=== PATIENT | female | born 1955 | race Caucasian/White ===

== ENCOUNTER → 2017-09-06 | Outpatient (CLI) | payer OTHER ==
[~2017-09-06] MED LIST: DORZ1SOL6 OPB; FEXO1TAB49 PO
[2017-09-06 12:08] LABS: HEMATOCRIT 38.2 % (37-47); MEAN CELL VOLUME 87.2 fL (80-100); MEAN CORPUSCULAR HEMOGLOBIN 29.7 pg (25-34); MEAN PLATELET VOLUME 9.1 fL (7.4-10.4); PLATELET COUNT 296 K/uL (130-400); RED CELL DISTRIBUTION WIDTH CV 13.4 % (11.5-14.5); WHITE BLOOD COUNT 5.95 K/uL (4.8-10.8)
[2017-09-06 12:22] LABS: ALBUMIN 3.8 gm/dl (3.4-5.0); ALT/SGPT 22 U/L (12-78); AST/SGOT 13 U/L (15-37); BLOOD UREA NITROGEN 14 mg/dl (7-18); CALCIUM 8.8 mg/dl (8.5-10.1); CARBON DIOXIDE 30 mmol/L (21-32); CHOLESTEROL 362 mg/dl (0-200); CREATININE 0.78 mg/dl (0.60-1.20); GLUCOSE 112 mg/dl (70-99); SODIUM 137 mmol/L (136-145)
[2017-09-06 12:25] LABS: ALKALINE PHOSPHATASE 51 U/L (45-117); LDL CHOLESTEROL CALCULATED 263 mg/dl; TOTAL PROTEIN 7.4 gm/dl (6.4-8.2)
== END | disposition home or self-care (01) ==
LOC: C.LAB1850 10:46
PROVIDERS: ATTEND Internal Medicine Interventional Cardiology
DX: Z00.00 Encounter for general adult medical examination without abnormal findings (principal)

== ENCOUNTER 2021-07-01 12:02 | Inpatient (IN) ==
[~2021-07-01 12:02] MED LIST changes: -DORZ1SOL6 OPB; -FEXO1TAB49 PO; +LACTATED RINGER'S 1,000 ML IV SCH
[2021-07-01] MEDS ORDERED: LIDOCAINE 2% 2 ML VIAL/AMP(20MG/ML) INFIL ONE (13:13)
[2021-07-01] MEDS ORDERED: fentaNYL citrate 100 MCG/2 ML VIAL ONE ×2 (13:13→17:33)
[2021-07-01] MEDS ORDERED: ONDANSETRON INJ 2 MG/ML 2 ML VIAL ONE ×2 (13:13→15:44)
[2021-07-01] MEDS ORDERED: DEXAMETHASONE SOD INJ 4 MG/ML VIAL ONE (13:13)
[2021-07-01] MEDS ORDERED: GLYCOPYRROLATE 0.2 MG/ML VIAL ONE ×2 (13:13→16:52)
[2021-07-01] MEDS ORDERED: NEOSTIGMINE METHYLSULFATE 1 MG/ML 10ML VIAL ONE (13:13)
[2021-07-01] MEDS ORDERED: MIDAZOLAM HCL 1 MG/ML 2ML VIAL ONE (13:13)
[2021-07-01] MEDS ORDERED: PROPOFOL IV EMULSION 10 MG/ML 20 ML VIAL IV ONE (13:13)
[2021-07-01] MEDS ORDERED: TRANEXAMIC ACID / 0.7% NACL 1,000 MG/100 ML BAG IV ONE (13:14)
[2021-07-01] MEDS ORDERED: ROPIVACAINE 0.5% 5 MG/ML 30 ML VIAL ONE (13:34)
--- NOTE | 2021-07-01 13:35 | Anesthesiology Consultation ---
Date of Service July 01, 2021 Assessment & Plan (1) Encounter for pre-operative examination: Chart Review Chart Review: Acceptable Risk for Surgery Consults Requested none ASA ASA2 Proposed Anesthesia Anesthesia Type: General Regional Regional Laterality: Left Site: Supraclavicular Risk / Benefits Reviewed With: PT / POA / Parent / Guardian, Accepts Plan and Informed Consent Obtained History Surgery Operation Date: 07/01/21 08:10 Proposed Procedures p Left Distal Humerus Open Reduction Internal Fixation - Ankush Chacon MD Height/Weight Height: 5 ft 3 in Weight: 80.3 kg Allergies Allergy/AdvReac Type Severity Reaction Status Date / Time shellfish derived Allergy Intermediate HIVES Verified 07/01/21 12:21 codeine AdvReac Intermediate GI SYMPTOMS Verified 07/01/21 12:21 Opioids - Morphine Analogues AdvReac Intermediate Vomiting Verified 07/01/21 12:21 Medications Home Medications Medication Instructions Recorded Confirmed Last Taken aspirin 325 mg tablet 325 mg PO QAM PRN tab 09/15/18 07/01/21 06/26/21 08:00 ibuprofen 200 mg tablet 200 mg PO QAM PRN tab 09/19/18 07/01/21 07/01/21 05:30 bimatoprost 0.01 % eye drops 1 drp OPB HS 06/26/21 07/01/21 06/30/21 21:00 (Bj) ondansetron 4 mg disintegrating 4 mg PO Q8H PRN #5 tab 06/26/21 07/01/21 06/28/21 07:00 tablet oxycodone 5 mg tablet 5 mg PO Q6H PRN #10 tab 06/26/21 07/01/21 06/28/21 07:00 docusate sodium 50 mg capsule 100 mg PO HS 07/01/21 07/01/21 06/30/21 20:00 Active Medications Generic Name Dose Route Start Last Admin Trade Name Freq PRN Reason Stop Dose Admin Lactated Ringer's 1,000 mls @ 15 mls/hr 07/01/21 06:00 07/01/21 13:02 Lr IV 07/02/21 05:59 15 mls/hr .Q24H NICOLE Administration NPO Date Last Intake of Fluids: 07/01/21 Time Last Intake of Fluids: 05:30 Last Intake of Fluids Comment: sip of water with meds this am only Date Last Intake of Solids: 06/30/21 Time Last Intake of Solids: 20:30 Past Medical History Medical History Adrenal cortical adenoma Depression Dyslipidemia Eczema Esophageal reflux History of severe nausea and vomiting after administration of anesthetic agent Impaired fasting glucose Seasonal allergies Exercise / Class Metabolic Activity II 4-5 Yardwork/Stairs/Walk up hill Past Family History Family History Other No pertinent family history in first degree relatives Past Surgical History Surgical History H/O: hysterectomy History of colonoscopy History of total replacement of left shoulder joint Past Anesthesia History No Hx of Anesthesia Complications and No Family Hx of Anesthesia Complications History of PONV No Hx of PONV and No Hx of Motion Sickness Social History Smoking Status: Former smoker Smoking End Date: as teenager only Hx Alcohol Use: Yes alcohol intake frequency: holidays/special occasions only Hx Substance Use: No Last Used Substance Other:: Weedoil for pain Physical Exam Vital Signs Last Vital Signs Temp 98.6 F 07/01/21 12:28 Pulse 87 07/01/21 12:28 Resp 20 07/01/21 12:28 BP 175/90 H 07/01/21 12:28 Pulse Ox 97 07/01/21 12:28 ENMT Mouth: no dentition abnormality Thyromental Distance: > or= 3.5 Finger Breadths Mallampati Class: II Neck normal visual inspection Respiratory normal respiratory effort Auscultation: lungs clear to auscultation bilaterally Cardiovascular Rate/Rhythm: regular rate and regular rhythm Testing Electrocardiogram Date: 06/30/21 Findings: + NSR @ (79 bpm)
--- NOTE | 2021-07-01 13:44 | History & Physical Bridge Note ---
Date of Service July 01, 2021 History & Physical Bridge Note I have examined the patient, reviewed the History & Physical and in the interval since the performance of the History & Physical I have noted the following changes of clinical significance: no changes noted
[2021-07-01] MEDS ORDERED: ONDANSETRON INJ 2 MG/ML 2 ML VIAL IV PRN (13:45)
[2021-07-01] MEDS ORDERED: fentaNYL citrate 100 MCG/2 ML VIAL IV PRN (13:45)
[2021-07-01] MEDS ORDERED: ATROPINE SULFATE 0.1 MG/ML 10ML SYR IV PRN (13:45)
[2021-07-01] MEDS ORDERED: ePHEDrine sulfate 50 MG/ML AMP IV PRN (13:45)
[2021-07-01] MEDS ORDERED: FAMOTIDINE/PF 20 MG/2 ML VIAL IV ONE (14:07)
[2021-07-01] MEDS ORDERED: ACETAMINOPHEN 1000 MG/100 ML IV IV ONE (14:07)
[2021-07-01] MEDS: ceFAZolin 2000MG 2,000 MG/15 ML SYR IV SCH ×3 (14:19→23:15)
[2021-07-01] MEDS ORDERED: METOCLOPRAMIDE HCL INJ 5 MG/ML 2 ML VIAL ONE (15:44)
[2021-07-01] MEDS ORDERED: diphenhydrAMINE 50 MG/ML VIAL ONE (15:44)
[2021-07-01] MEDS ORDERED: PHENYLEPHRINE HCL 10 MG/ML VIAL ONE (15:53)
[2021-07-01] MEDS ORDERED: ROCURONIUM BROMIDE 10 MG/ML 5 ML VIAL IV ONE (16:51)
--- NOTE | 2021-07-01 17:38 | Fluoroscopy Report ---
FL humerus LT 2V CLINICAL HISTORY: LT ORIF DISTAL FX COMPARISON STUDY: Left humerus radiographs June 26, 2021. FLUOROSCOPY TIME: 24 seconds. FLUOROSCOPIC IMAGES: 6 FINDINGS: Fluoroscopy was provided during open reduction and internal fixation of the distal left hum eral fracture with plate and screws. Fracture alignment has markedly improved and appears anatomic. T here are no unexpected radiopaque foreign bodies. Left shoulder arthroplasty is partially imaged. Int erval placement of cerclage wires is noted. IMPRESSION: Fluoroscopy provided during open reduction and internal fixation of the distal diaphysea l fracture of the left humerus. ACT 112: Negative or not required by law. Electronically signed by: Braulio Holt M.D. 07/01/2021 5:36 PM
[2021-07-01] MEDS ORDERED: LABETALOL HCL IV 5 MG/ML 20ML IV ONE (17:44)
[2021-07-01] MEDS ORDERED: ASPIRIN 325 MG ECTAB PO PRN (18:00)
[2021-07-01] MEDS ORDERED: oxyCODONE HCL IR 5 MG TAB (IMMEDIATE RELEASE) PO PRN (18:00)
[2021-07-01] MEDS ORDERED: ONDANSETRON 4 MG OD TAB PO PRN (18:00)
--- NOTE | 2021-07-01 18:00 | Operative Report ---
Post Operative Report Pre & Post Diagnosis Operation Date: 07/01/21 08:10 Pre-Op Diagnosis: Left Distal Humerus Fracture Post-Op Diagnosis: Left Distal Humerus Fracture I identified the patient and participated in the time-out.: Yes Procedure Operation Date: 07/01/21 08:10 Actual Procedures p Open Reduction Internal Fixation Left Periprosthetic Humerus Fracture(Left) - Ankush Chacon MD Surgeon Ankush Chacon MD Electric Shovel Operator Ale Valdez physicians claims assistant no resident or fellow available Estimated Blood Loss 25 Findings Consistent with Post-Op Diagnosis Specimens None Anesthesia Type General Regional Complications none Disposition Accompanied Patient To Recovery: No Disposition: Recovery Room Indications Ashleigh is 66. She had a fall several days ago resulting in a left distal humerus fracture. The fracture is distal to a well fixed cemented reverse total shoulder stem from a prior proximal humerus fracture. The fracture is displaced angulated and unstable and I recommended operative intervention. Her radial nerve is intact. Description of Procedure Informed consent obtained. Patient identified. She identified the operative site as the left humerus which I marked with my initials. A preoperative surgical timeout was performed and a preop dose of IV antibiotics was given. She was taken to the operating room positioned supine on the OR table in the anesthetic was administered. She was then placed decubitus with the left side up and axillary roll was inserted a beanbag was used to secure her body. The lower extremities bony prominences were inspected and padded. A radiolucent armboard was utilized along with a bone foam. The down arm was flexed to just about 90 degrees and the elbow was bent to just about 90 degrees. Bony prominences were inspected and padded the torso secured to the table care was taken at all times to provide traction to the arm. The arm was prescrubbed prepped and draped in usual sterile fashion down to the wrist up to the shoulder. She received a preop dose of IV antibiotics as well as TXA. Fluoroscopic guidance was utilized throughout the procedure. DVT prophylaxis with SCDs. Postoperatively early mobility. The limb was exsanguinated with the Esmarch and tourniquet inflated to 275 mmHg. The tourniquet was let up for the first part of the surgical exposure but the incision needed to be extended proximally and I then removed the sterile tourniquet. The incision ended up being about 25 to 30 cm in length. Was midline down the posterior aspect of the arm curving around the lateral side of the olecranon. Electrocautery was utilized down to the subcutaneous tissues to the fascia. The fascia was divided in line with the incision. I then divided the triceps muscle distally down to the olecranon fossa. I created a para tricipital window lateral to the distal triceps over the lateral humeral condyle. I then subperiosteally exposed the posterior margin of the fracture s ite and distal humerus. I then carefully bluntly dissected proximally and just above the fracture I identified the radial neurovascular bundle which was tagged with a vessel loop. I then used further blunt dissection proximally to expose the proximal humerus and I did subperiosteal exposure as necessary. The fracture site was opened and cleaned of hematoma proximally and distally. Proximally there was cement present which I was able to fracture off enabling easier fracture manipulation and fixation. The fracture was then anatomically reduced. The ideal screw would need to be placed through the plate. Therefore I inserted 2 small K wires transfixing the fracture. The fracture is also held reduced with a clamp. I then selected a 10 hole posterior lateral Synthes distal humerus plate. The plate was aligned proximally and distally and held in place with a David clamp. Radiographs were obtained and the plate was lined up well proximally and distally. I would have several opportunities for cerclages proximally around the humeral stem. I then placed a interfragmentary compression screw through the plate across the fracture in lag mode. I then placed a whirlybird distally to hold the plate in position and then put a cerclage wire proximally. The cerclage wires were placed by bluntly dissecting down through the intermuscular septum and using hemostat to separate the tissue from the bone. I introduced the passer from the medial to the lateral. The cerclage wires were then passed and tightened on the anterolateral aspect of the plate. The plate was off a couple millimeters proximally and this brought it down very nicely without disturbing the fracture. Fluoroscopic guidance was utilized to assess reduction and positioning of the hardware. I then applied 2 additional cerclages proximally. I then placed 4 unicortical locking screws distally and one bicortical locking screw distally. Prior to doing this I removed the pins and advanced and seated the lag screw. Fracture remained anatomically reduced. I inserted 2 more bicortical locking screws proximally through the cement mantle. Copious irrigation was performed throughout the surgery and the soft tissues were kept moist. Fluoroscopic images were obtained demonstrating good positioning of the hardware reduction and reduction of the fracture. After the initial part of the surgical exposure the tourniquet was let down after about 20 minutes of inflation. Meticulous hemostasis was performed. The radial nerve lay directly over the plate at holes 5 and 6 from the top. The distal portion of the plate did not impinge upon the olecranon in its fossa nor did it impinge upon the radial head with the elbow fully extended. I closed the triceps tendon fascia with running and interrupted #1 Vicryl. The subcutaneous tissues were closed in layers using 0 and 2-0 Vicryl and elizabeth on the skin. The arm was cleaned wet and dry sponges and a bulky soft sterile dressing was applied Xeroform 4 x 4's ABD cast padding and a posterior splint from the shoulder down to the metacarpophalangeal joints with the elbow at 90 and the wrist in neutral. The posterior cutaneous nerve was not encountered. Patient awakened from anesthesia without difficulty taken to recovery in stable condition. There were no specimens or complications counts were correct and blood loss is estimated to be 25 cc. At the conclusion the operation spoke patient's family informed of my findings and postop instructions were given. I recommend and believe that it is medically necessary for the patient to stay overnight. If she is doing well tomorrow with pain control and able to ambulates satisfactorily we can discharge her home. The hardware inserted was sent these. I attest to the content of the Intraoperative Record and any orders documented therein. Any exceptions are noted below.
--- NOTE | 2021-07-01 18:06 | Operative Report ---
Post Operative Report Pre & Post Diagnosis Operation Date: 07/01/21 08:10 Pre-Op Diagnosis: Left Distal Humerus Fracture Post-Op Diagnosis: Left Distal Humerus Fracture I identified the patient and participated in the time-out.: Yes Procedure Operation Date: 07/01/21 08:10 Actual Procedures p Open Reduction Internal Fixation Left Periprosthetic Humerus Fracture(Left) - Ankush Chacon MD Surgeon Ankush Chacon M.D. Textile Machinery Sales Representative Ale Valdez physicians equity sales assistant no resident or fellow available Estimated Blood Loss 25 Findings Consistent with Post-Op Diagnosis left periprosthetic hip fracture Specimens None Anesthesia Type General Regional Description of Procedure Patient was taken to the operating room, placed under general anesthesia, given peripheral nerve block. Time out performed, given 2gm IV ancef for surgical prophylaxis. She was prepped and draped in routine sterile fashion. I was present during the entire case and assisted with positioning, tissue retraction, reduction of fracture, implantation of hardware, irrigation, closure and splinting. Please see Dr. Chacon's operative report for further details. Patient was awakened and taken to the operating room in stable condition. I attest to the content of the Intraoperative Record and any orders documented therein. Any exceptions are noted below.
--- NOTE | 2021-07-01 18:44 | Anesthesiology Progress Note ---
Date of Service July 01, 2021 Anesthesia Post Procedure Vital Signs Vital Signs: Temp Pulse Pulse Resp BP Pulse Ox 07/01/21 18:35 81 17 158/88 H 98 07/01/21 18:25 85 23 166/90 H 97 07/01/21 18:15 84 15 158/99 H 99 07/01/21 18:05 36.1 C L 79 20 153/83 H 97 07/01/21 12:28 37 C 87 20 175/90 H 97 Pain Intensity Left Arm: Pain Intensity: 1 Transfer of Care Handoff Completed per policy Notes Mental Status: alert / awake / arousable Patient Amnestic to Procedure: Yes Nausea / Vomiting: adequately controlled Pain: adequately controlled Airway Patency, RR, SpO2: stable & adequate BP & HR: stable & adequate Hydration State: stable & adequate Anesthetic Complications: no major complications apparent
[2021-07-01] MEDS ORDERED: DOCUSATE SODIUM 100 MG CAP PO SCH (21:00)
[2021-07-01] MEDS ORDERED: BIMATOPROST 0.01% OP SOLN 2.5 ML BTL OP SCH (21:00)
[2021-07-01] MEDS ORDERED: METOCLOPRAMIDE HCL INJ 5 MG/ML 2 ML VIAL IV PRN (22:00)
[2021-07-01] MEDS ORDERED: SENNA 8.6 MG TAB PO SCH (22:00)
[2021-07-01] MEDS ORDERED: SODIUM CHLORIDE 0.9% 1000ML 1,000 ML IV SCH (22:00)
[2021-07-01] MEDS ORDERED: MAGNESIUM HYDROXIDE SUSP 30 ML UDC PO PRN (22:00)
[2021-07-01] MEDS ORDERED: traMADol HCL 50 MG TABLET PO PRN (22:00)
[2021-07-01] MEDS ORDERED: NALOXONE HCL 0.4 MG/1 ML VIAL/CARP IV PRN (22:00)
[2021-07-01] MEDS ORDERED: HYDROmorphone INJ 0.5 MG/0.5 ML SYR IV PRN (22:00)
[2021-07-01] MEDS ORDERED: bisacodyL 10 MG SUPP PR PRN (22:00)
[2021-07-01] MEDS: ACETAMINOPHEN 500 MG TAB PO SCH (23:09)
[2021-07-01] MEDS: KETOROLAC TROMETHAMINE 15 MG/ML VIAL IV SCH (23:12)
[2021-07-02] MEDS ORDERED: TRANEXAMIC ACID / 0.7% NACL 1,000 MG/100 ML BAG IV SCH (00:15)
[2021-07-02] MEDS: KETOROLAC TROMETHAMINE 15 MG/ML VIAL IV SCH ×3 (03:53→15:03)
[2021-07-02] MEDS: ACETAMINOPHEN 500 MG TAB PO SCH ×2 (06:10→14:17)
[2021-07-02 07:39] LABS: Hematocrit (blood only) 32.1 % (37-47); Hemoglobin 10.5 g/dL (12.0-16.0); Mean Corpuscular Hemoglobin 29.3 pg (25-34); Mean Corpuscular Hgb Conc 32.7 g/dL (32-36); Mean Corpuscular Volume 89.7 fL (80-100); Mean Platelet Volume 8.9 fL (7.4-10.4); Platelet Count 271 K/uL (130-400); RDW Coefficient of Variation 13.8 % (11.5-14.5); RDW Standard Deviation 45.7 fL (36.4-46.3); Red Blood Count 3.58 M/uL (4.2-5.4)
[2021-07-02] MEDS ORDERED: MULTIVITAMIN TAB PO SCH (09:00)
[2021-07-02] MEDS: ceFAZolin 2000MG 2,000 MG/15 ML SYR IV SCH (09:12)
--- NOTE | 2021-07-02 11:01 | Orthopedic Progress Note ---
Date of Service July 02, 2021 Assessment & Plan (1) Fracture, humerus: Plan: Postop day 1-status post left distal periprosthetic humerus fracture with Dr. Chacon on July 01, 2021. PT and OT have been ordered. She has not been seen by them yet this morning. She has been ambulating in her room with her assistance of the nurse and doing well with that. Tolerating a regular diet. Colace and Senokot for her bowel regimen to help with constipation. She has been using Toradol for pain control. We are unable to send her home with this and she has done well with ibuprofen at home. She would like to just go home with her ibuprofen. She is refusing to take any Dilaudid, Tylenol or oxycodone or tramadol. Nonweightbearing left upper extremity. Keep splint and dressings intact. Use sling when out of bed. Encouraged finger range of motion and elevation to help with swelling. Ice to her left upper arm as needed for pain and swelling. We will plan for discharge to her home later today if safe and physical therapy and Occupational Therapy and pain well controlled.. She has follow-up scheduled for Wednesday in our office. Postoperative course was discussed. All questions were answered. She is in agreement to have some [place] sent to her pharmacy in case she were to need something more for pain control of the next couple of days. Explained to her the first 3 days are the hardest with pain control. She has oxycodone and Zofran at home to use if necessary as well. May be comfortable with head of bed elevated. (2) Vitamin D deficiency: Plan: Vitamin D level 20.2. We will start vitamin D supplementation weekly for the next 4 weeks and then recheck a vitamin D level. This was explained to the patient. We will send a prescription of vitamin D to her pharmacy. Admission and Anticipated Discharge Date Admission Date: July 01, 2021 Subjective Patient resting in bed. Starting to feel pain in her left upper arm. Describes her pain is approximately a 3 out of 10. She just had Toradol. She is refusing to take any narcotic pain medication or even Tylenol for postop pain control due to her previous reactions with it. She states the Tylenol has made her jittery and oxycodone is made her sick. She does usually take it with Zofran which typically does not help. She is hoping to get by with postop pain control with just ibuprofen. Her daughter told her that she does well with Vicodin and recommended that her mom give that a try. The patient is hesitant to try this but willing to have a few tablets sent to her pharmacy just in case she would need it for postop pain control. I explained to her that what she experiences are adverse reactions and that we can do things to try to help prevent should. She does have Zofran at home. She states that her doctor told her that may be the name brand Tylenol made her jittery because of the red dye and recommended trying generic. Review of Systems Review of Systems: She denies any fevers or chills. Denies any lightheadedness or dizziness. Has been out of bed and ambulating with assistance in her room. Feels comfortable doing that. Denies any chest pain or shortness of breath. Has been urinating fine but no bowel movement in last few days. She is on a stool softener and Senokot. Denies any nausea or vomiting. She been tolerating a regular diet. Physical Exam Musculoskeletal: Exam of her left upper extremity: Her splint and dressings are clean, dry and intact. Her sling is intact. Her left hand is elevated on a pillow at her side while laying down. She has full range of motion of her fingers. Distal sensation is normal. Distal pulses are 1+. Fingers are warm and cap refill is brisk. She is able to extend her thumb. No tingling or numbness on the dorsal aspect of her left thumb. Nontender with palpation of her left shoulder. Results & Data ([facility]) Vital Signs (Past 12 Hours) Vital Signs Temp Pulse Resp BP Pulse Ox 07/02/21 07:37 36.8 C 79 18 134/78 97 07/02/21 03:43 36.7 C 83 16 113/66 95 07/02/21 00:01 36.4 C L 99 H 18 136/69 95 07/01/21 22:53 36.9 C 109 H 16 126/70 94 Laboratory Results 07/02/21 07/02/21 Range/Units 07:12 07:12 WBC 12.40 H (4.8-10.8) K/uL RBC 3.58 L (4.2-5.4) M/uL Hgb 10.5 L (12.0-16.0) g/dL Hct 32.1 L (37-47) % MCV 89.7 (80-100) fL MCH 29.3 (25-34) pg MCHC 32.7 (32-36) g/dL RDW Std Deviation 45.7 (36.4-46.3) fL RDW Coeff of Monique 13.8 (11.5-14.5) % Plt Count 271 (130-400) K/uL MPV 8.9 (7.4-10.4) fL 25-OH Vitamin D Total 20.2 L (30-100) ng/ml Diagnostic Findings Intraoperative x-rays were reviewed with the patient today. (1) Fracture, humerus Encounter type: initial encounter Fracture morphology: unspecified fracture morphology Fracture type: closed Humerus Location: distal Laterality: left Qualified Code(s): S42.402A - Unspecified fracture of lower end of left humerus, initial encounter for closed fracture
--- NOTE | 2021-07-02 11:09 | Discharge Summary ---
Date of Service July 02, 2021 Discharge Data Procedures Performed Operation Date: 07/01/21 08:10 Actual Procedures p Open Reduction Internal Fixation Left Periprosthetic Humerus Fracture(Left) - Ankush Chacon MD Hospital Course (1) Vitamin D deficiency: Vitamin D level was checked on postoperative day 1. She was found to have vitamin D deficiency with a level of 20.2. Vitamin D 50,000 international units was prescribed weekly with her first dose being given this morning. She will continue this weekly for the next 3 to 4 weeks and we will recheck as an outpatient. She is aware of this. She has taken this medication in the past and tolerated it well. (2) Fracture, humerus: Patient underwent an open reduction internal fixation of her left distal humerus periprosthetic fracture with Dr. Chacon on July 01, 2021. Risks and complications of the procedure were explained to the patient and informed consent was obtained prior to surgery. She was admitted to [facility] for observation after her procedure. She tolerated the procedure well. Her surgery was performed with general anesthesia and a peripheral nerve block. Intraoperative x-rays confirmed reduction of the fracture and implantation of hardware. She was placed in a splint and sling of her left upper extremity which was instructed to remain in place at all times. She was given a regular diet. She was given IV Dilaudid, oxycodone and tramadol for postoperative pain control. Her pain was controlled with Toradol. She did not develop any postoperative nausea, vomiting, lightheadedness or dizziness, fevers or chills, chest pains or shortness of breath. She feels very well on postoperative day 1. Her labs were stable. Her vitamin D level was found to be low and supplementation was ordered. She did well out of bed with physical therapy and Occupational Therapy and nursing assistance. She was able to fully move her fingers of her left hand after surgery. Dressings were not changed while she was in the hospital. Postoperative course was discussed. She was given SCDs and MEAGHAN stockings for DVT prophylaxis as well as early mobility. She was placed on Colace and Senokot for prevention of constipation. She was seen by case management for any disposition needs. Was determined that she was safe out of bed and was discharged to her home in stable condition on July 02, 2021.
[2021-07-02] MEDS ORDERED: ERGOCALCIFEROL 50,000 UNITS 1250 MCG CAP PO SCH (11:30)
== END 2021-07-02 15:59 | disposition home or self-care (01) | DRG 493 ==
LOC: ASU 12:02 → 3E 20:38
DX: M97.32XA Periprosthetic fracture around internal prosthetic left shoulder joint, initial encounter; Z90.710 Acquired absence of both cervix and uterus; K21.9 Gastro-esophageal reflux disease without esophagitis; E78.5 Hyperlipidemia, unspecified; F32.A Depression, unspecified; Z79.82 Long term (current) use of aspirin; Z91.013 Allergy to seafood; J30.2 Other seasonal allergic rhinitis; Z20.822 Contact with and (suspected) exposure to COVID-19; E55.9 Vitamin D deficiency, unspecified; Z87.891 Personal history of nicotine dependence; S42.402A Unspecified fracture of lower end of left humerus, initial encounter for closed fracture; X58.XXXA Exposure to other specified factors, initial encounter; Z88.5 Allergy status to narcotic agent